=== PATIENT | female | born 1950 | race Two or more races ===

== ENCOUNTER 2019-04-22 06:17 | Day surgery (SDC) | payer OTHER ==
[~2019-04-22 06:17] MED LIST: CRESTOR20 MG PO; OMEPRAZOLE MAGN20 MG PO; PROBIOTIC1 EAC2 PO; SYNTHROID50 MCG PO; TRIGLIDE160 MG PO
[2019-04-22] MEDS ORDERED: COLACE100 MG PO (08:47)
[2019-04-22] MEDS ORDERED: PERCOCET 5-3251 EACH PO (08:47)
== END 2019-04-22 15:35 | disposition home or self-care (01) ==
LOC: CIR.AMB 06:17
DX: K62.0 Anal polyp (principal); K64.8 Other hemorrhoids

== ENCOUNTER 2023-01-30 11:20 | Inpatient (IN) | payer OTHER ==
[~2023-01-30] VITALS: Ht 149.9 cm; Wt 50.8 kg
[~2023-01-30 11:20] MED LIST changes: +COLACE100 MG PO; +PERCOCET 5-3251 EACH PO
== END 2023-02-17 20:07 | disposition home or self-care (01) | DRG 330 ==
LOC: ER 11:20 → MEDJ 23:16
PROVIDERS: Emergency Medicine; General Practice; Surgery; ADMIT Specialist; ATTEND Specialist
PROC: BW21YZZ Computerized Tomography (CT Scan) of Abdomen and Pelvis using Other Contrast (ICD-10-PCS; 2023-01-30)
PROC: 02HV33Z Insertion of Infusion Device into Superior Vena Cava, Percutaneous Approach (ICD-10-PCS; 2023-02-01)
PROC: BW21YZZ Computerized Tomography (CT Scan) of Abdomen and Pelvis using Other Contrast (ICD-10-PCS; 2023-02-05)
PROC: 0DBP4ZZ Excision of Rectum, Percutaneous Endoscopic Approach (ICD-10-PCS; 2023-02-10)
PROC: 0DJD8ZZ Inspection of Lower Intestinal Tract, Via Natural or Artificial Opening Endoscopic (ICD-10-PCS; 2023-02-10)
PROC: 0DTN4ZZ Resection of Sigmoid Colon, Percutaneous Endoscopic Approach (ICD-10-PCS; principal; 2023-02-10 13:15)
DX: K56.699 Other intestinal obstruction unspecified as to partial versus complete obstruction (principal); K57.32 Diverticulitis of large intestine without perforation or abscess without bleeding; K52.89 Other specified noninfective gastroenteritis and colitis; E87.6 Hypokalemia; E86.0 Dehydration; R59.0 Localized enlarged lymph nodes; I10 Essential (primary) hypertension; E03.9 Hypothyroidism, unspecified; E78.5 Hyperlipidemia, unspecified; Z20.822 Contact with and (suspected) exposure to COVID-19